=== PATIENT | female | born 1970 | race Caucasian/White ===

== ENCOUNTER 2018-08-23 21:27 | Emergency (ER) | payer OTHER ==
[~2018-08-23] VITALS: Ht 167.6 cm; Wt 95.3 kg
[2018-08-23] MEDS ORDERED: ELIQUIS5 MG (21:43)
[2018-08-23] MEDS ORDERED: ZYRTEC10 M5 (21:43)
[2018-08-23] MEDS ORDERED: ZANTAC 150MG T150 MG (21:43)
[2018-08-23] MEDS ORDERED: TUMS (21:44)
[2018-08-23 22:28] LABS: ABSOLUTE BASOPHILS 0.1 thou/uL (0.0-0.2); ABSOLUTE EOSINOPHILS 0.2 thou/uL (0.0-0.7); ABSOLUTE LYMPHOCYTES 3.1 thou/uL (0.8-5.3); ABSOLUTE MONOCYTES 0.9 thou/uL (0.0-1.2); BASOPHILS 0.7 %; EOSINOPHILS 1.9 %; HEMATOCRIT 44.3 % (37.0-47.0); HEMOGLOBIN 15.4 gm/dL (12.0-15.0); LYMPHOCYTES 27.4 %; MCH 32.1 pg (26.0-34.0); MCHC 34.7 g/dL (28.0-37.0); MCV 92.5 fL (80.0-100.0); MONOCYTES 8.3 %; MPV 8.8 fl. (7.2-11.1); NUCLEATED RBCS 0 /100WBC; PLATELET COUNT* 208 thou/uL (150-400); POLYS 61.7 %; RBC 4.79 mil/uL (4.20-5.00); RDW-CV 12.8 % (10.5-14.5); WBC 11.3 thou/uL (4.0-11.0)
[2018-08-23 22:34] LABS: URINE BILIRUBIN NEGATIVE (Negative); URINE BLOOD 2+ (Negative); URINE CLARITY CLEAR; URINE COLOR YELLOW; URINE GLUCOSE-RANDOM NEGATIVE (Negative); URINE KETONES NEGATIVE (Negative); URINE LEUKOCYTES-REFLEX NEGATIVE (Negative); URINE NITRITE-REFLEX NEGATIVE (Negative); URINE PROTEIN NEGATIVE (Negative); URINE SPECIFIC GRAVITY <= 1.005 (1.005-1.030); URINE UROBILINOGEN 0.2 E.U./dl (0.2-1.0)
[2018-08-23 22:36] LABS: ANION GAP 8 mmol/L (7-16); BUN 11 mg/dL (7-18); CALCIUM 9.4 mg/dL (8.5-10.1); CHLORIDE 100 mmol/L (98-107); CO2 32 mmol/L (21-32); CREATININE 0.7 mg/dL (0.6-1.3); GLUCOSE 122 mg/dL (70-99); POTASSIUM 3.6 mmol/L (3.5-5.1); SODIUM 140 mmol/L (136-145)
[2018-08-23 22:38] LABS: SQUAMOUS 0-3 Few /LPF (0-3); URINE RBC 0-2 Rare /HPF (0-2); URINE WBC-REFLEX None Seen /HPF (0-5)
[2018-08-23 22:39] LABS: BACTERIA-REFLEX None Seen /HPF (None Seen); CASTS None Seen /LPF (None Seen); CRYSTALS None Seen /LPF (None Seen)
[2018-08-23 22:46] LABS: PROTIME 9.9 Seconds (9.20-11.50)
[2018-08-23 22:47] LABS: ALBUMIN 4.1 g/dL (3.4-5.0); ALKALINE PHOSPHATASE 68 U/L (46-116); NT-PRO BRAIN NAT PEPTIDE 17 pg/mL (<300); SGOT 26 U/L (15-37); SGPT 52 U/L (30-65); TOTAL BILIRUBIN 0.4 mg/dL (<0.1-1.0); TOTAL PROTEIN 8.5 g/dL (6.4-8.2); TROPONIN-I LEVEL <0.06 ng/mL (<0.06)
[2018-08-24 01:15] VITALS: BP 114/64
--- NOTE | 2018-08-24 16:49 | EKG ---
[place] [address] ELECTROCARDIOGRAM REPORT Name: DWAYNE HESTER Room: [facility]#: [id number] Admission: 08/23/18 Attend Phys: Discharge: 08/24/18 Date of : 68 Report #: [id number] THIS REPORT FOR: //name// [facility] ED Test Date: 2018-08-23 Test Time: 22:25:31 Pat Name: DWAYNE HESTER Department: Room: Gender: F [employer]: BINH : 1970 Requested By: Sole Jovel Order Number: [id number] MD: Luke Bee Measurements Intervals [place] Rate: 73 P: -12 NE: 152 QRS: 7 QRSD: 106 T: -5 QT: 414 QTc: 457 Interpretive Statements Sinus rhythm Low voltage, precordial leads RSR' in V1 or V2, probably normal variant Nonspecific T abnormalities, anterior leads No previous ECG available for comparison Electronically Signed On 08-24-2018 16:49:12 CDT by Luke Bee [email or web address] <ELECTRONICALLY SIGNED> By: Luke Bee MD, [facility] 08/24/18 0304 2225 2225 Luke Bee MD, [facility] /EPI
== END 2018-08-24 01:16 | disposition home or self-care (01) ==
LOC: M.ERS 21:27
PROVIDERS: Emergency Medicine
DX: R07.81 Pleurodynia (principal); J45.909 Unspecified asthma, uncomplicated; G47.30 Sleep apnea, unspecified; G43.909 Migraine, unspecified, not intractable, without status migrainosus; Z88.8 Allergy status to other drugs, medicaments and biological substances; Z88.1 Allergy status to other antibiotic agents; Z88.5 Allergy status to narcotic agent; Z88.4 Allergy status to anesthetic agent; Z88.0 Allergy status to penicillin; Z88.2 Allergy status to sulfonamides; Z90.710 Acquired absence of both cervix and uterus